=== PATIENT | male | born 1955 | race Caucasian/White ===

== ENCOUNTER 2020-09-03 17:40 | Inpatient (IN) | payer MEDICARE, SELFPAY ==
[~2020-09-03] VITALS: Ht 182.9 cm; Wt 68.9 kg
--- NOTE | 2020-09-03 18:01 | NUR ---
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
[2020-09-03 18:45] LABS: BASOPHILS % (AUTO) 1 % (0-1); EOSINOPHILS % (AUTO) 3 % (1-7); LYMPHOCYTES % (AUTO) 7 % (22-44); MEAN CORPUSCULAR HEMOGLOBIN 30.4 pg (27.5-34.5); MEAN CORPUSCULAR HGB CONC 33.4 g/dL (33.2-36.2); MEAN PLATELET VOLUME 7.8 fL (7.4-10.4); MONOCYTES % (AUTO) 12 % (2-9); NEUTROPHILS % (AUTO) 78 % (42-75); PLATELET COUNT 342 x10^3/uL (130-400); RED BLOOD COUNT 5.07 x10^6/uL (4.38-5.82)
[2020-09-03 18:50] LABS: MD NO
[2020-09-03 18:55] LABS: ALBUMIN 3.3 g/dL (3.4-5.0); ANION GAP 4 mmol/L (5-15); CALCIUM 9.3 mg/dL (8.5-10.1); CHLORIDE 105 mmol/L (98-107)
[2020-09-03 19:00] LABS: ALANINE AMINOTRANSFERASE 22 U/L (12-78); ALKALINE PHOSPHATASE 58 U/L (45-117); BILIRUBIN,TOTAL 0.3 mg/dL (0.2-1.0); CREATININE 1.06 mg/dL (0.7-1.3); TOTAL PROTEIN 7.4 g/dL (6.4-8.2); TROPONIN I < 0.015 ng/mL (0.000-0.045)
--- NOTE | 2020-09-03 19:02 | NUR ---
RECEIVED REPORT FROM WENDI FLOOD TO [facility].
[2020-09-03] MEDS ORDERED: OMNIPAQUE 350 MG/ML, 75ML BOTTLE ONE (20:23)
[2020-09-03] MEDS ORDERED: PIPERACILLIN/TAZO 3.375 GM in DEXTROSE 5% 50 ML IV SCH (21:00)
--- NOTE | 2020-09-03 21:51 | NUR ---
REPORT GIVENT TO LORI FLOOD TO [facility]ME [facility]ARE.
[2020-09-03] MEDS ORDERED: POLYETHYLENE GLYCOL 17 GM PACKET PEG PRN (22:30)
[2020-09-03] MEDS ORDERED: DOCUSATE 100 MG CAPSULE PEG PRN (22:30)
[2020-09-03] MEDS: ENOXAPARIN 40 MG/0.4 ML SQ SCH (22:30)
[2020-09-03] MEDS ORDERED: BISACODYL 10 MG SUPP PR PRN (22:30)
[2020-09-03] MEDS ORDERED: ONDANSETRON ODT 4 MG PEG PRN (22:30)
[2020-09-03] MEDS ORDERED: hydrALAzine 20 MG/ML, 1ML IVPush PRN (22:30)
[2020-09-03] MEDS ORDERED: PROMETHAZINE 25 MG/ML, 1ML IM PRN (22:30)
[2020-09-03] MEDS ORDERED: ONDANSETRON 2MG/ML, 2ML IVPush PRN (22:30)
[2020-09-03] MEDS ORDERED: SODIUM CHLORIDE 0.9% 1,000 ML IV SCH (22:30)
[2020-09-03] MEDS ORDERED: OXYcodone IR 5MG TABLET PEG PRN (22:30)
[2020-09-03] MEDS ORDERED: ACETAMINOPHEN 325 MG TABLET PEG PRN (22:30)
[2020-09-03 22:44] VITALS: BP 136/88
[2020-09-03 22:48] VITALS: BP 152/94
[2020-09-04 01:15] VITALS: BP 153/92
[2020-09-04] MEDS ORDERED: MELATONIN 5 MG TABLET PEG PRN (01:30)
[2020-09-04] MEDS: PIPERACILLIN/TAZO 3.375 GM in DEXTROSE 5% 50 ML IV SCH ×4 (03:47→22:40)
[2020-09-04 04:49] LABS: BASOPHILS % (AUTO) 1 % (0-1); EOSINOPHILS % (AUTO) 2 % (1-7); LYMPHOCYTES % (AUTO) 5 % (22-44); MEAN CORPUSCULAR HEMOGLOBIN 30.3 pg (27.5-34.5); MEAN CORPUSCULAR HGB CONC 33.7 g/dL (33.2-36.2); MEAN PLATELET VOLUME 7.8 fL (7.4-10.4); MONOCYTES % (AUTO) 8 % (2-9); NEUTROPHILS % (AUTO) 85 % (42-75); PLATELET COUNT 319 x10^3/uL (130-400); RED BLOOD COUNT 4.86 x10^6/uL (4.38-5.82); RED CELL DISTRIBUTION WIDTH 14.1 % (9.4-14.8)
[2020-09-04 04:52] LABS: MD NO
[2020-09-04 04:53] LABS: ALBUMIN 2.8 g/dL (3.4-5.0); ANION GAP 4 mmol/L (5-15); CALCIUM 8.3 mg/dL (8.5-10.1); CHLORIDE 109 mmol/L (98-107)
[2020-09-04 05:01] LABS: ALANINE AMINOTRANSFERASE 18 U/L (12-78); ALKALINE PHOSPHATASE 50 U/L (45-117); BILIRUBIN,TOTAL 0.4 mg/dL (0.2-1.0); CHOL/HDL RATIO 3.7; CHOLESTEROL, TOTAL 133 mg/dL (140-239); CREATININE 0.95 mg/dL (0.7-1.3); HDL CHOL % 27 % (26-37); HDL CHOLESTEROL (DIRECT) 36 mg/dL (40-60); LDL CHOLESTEROL,CALCULATED 79 mg/dL (54-169); LDL/HDL RATIO 2.2 (0.5-3.0); TOTAL PROTEIN 6.4 g/dL (6.4-8.2); TRIGLYCERIDES 88 mg/dL (50-200); VLDL CHOLESTEROL 18 mg/dL (0-25)
[2020-09-04 08:13] VITALS: BP 113/58
[2020-09-04 12:42] VITALS: BP 100/56
[2020-09-04] MEDS: LACTOBACILLUS CHEW TABLET PO SCH ×3 (16:00→22:39)
[2020-09-04 19:16] VITALS: BP 100/66
[2020-09-04] MEDS: ENOXAPARIN 40 MG/0.4 ML SQ SCH (22:39)
[2020-09-04] MEDS ORDERED: TEMAZEPAM 15 MG CAPSULE PEG PRN (23:00)
[2020-09-05 00:37] VITALS: BP 93/53
[2020-09-05] MEDS: PIPERACILLIN/TAZO 3.375 GM in DEXTROSE 5% 50 ML IV SCH ×2 (04:52→11:06)
[2020-09-05 07:56] VITALS: BP 103/68
[2020-09-05] MEDS: LACTOBACILLUS CHEW TABLET PO SCH (09:28)
[2020-09-05] MEDS ORDERED: AMOX250S20 PEG (11:39)
== END 2020-09-05 12:40 | disposition home or self-care (01) | DRG 178 ==
LOC: ED 19:25 → EDIP 21:13 → 3N 22:25 → DCLOUNGE 09-05 12:32
PROVIDERS: ADMIT Internal Medicine; ATTEND Family Medicine
DX: J69.0 Pneumonitis due to inhalation of food and vomit (principal); E44.0 Moderate protein-calorie malnutrition; Z93.1 Gastrostomy status; Z85.89 Personal history of malignant neoplasm of other organs and systems; R13.10 Dysphagia, unspecified; Z20.822 Contact with and (suspected) exposure to COVID-19; Z87.891 Personal history of nicotine dependence; Z92.21 Personal history of antineoplastic chemotherapy; Z92.3 Personal history of irradiation; R91.1 Solitary pulmonary nodule
CPT/HCPCS: 36415; 71045; 71275; 74230; 80053; 80061; 83036; 83605; 83735; 84100; 84145; 84443; 84484; 85025; 85379; 87040; 87070; 87205; 93005; 99285; G0378; J2543; Q9967; U0005; J7030; U0003